=== PATIENT | female | born 1980 | race Caucasian/White ===

== ENCOUNTER 2016-10-02 22:03 | Inpatient (IN) | payer MEDICAID ==
[~2016-10-02] VITALS: Ht 154.9 cm; Wt 77.6 kg
[2016-10-02 22:08] VITALS: Ht 154.9 cm; Wt 77.6 kg
[2016-10-02 22:09] VITALS: BP 146/82; RESP 18
[2016-10-02] MEDS ORDERED: PREN1TAB62 PO (22:16)
[2016-10-02 23:11] LABS: ADD SCAN DIFF NO
[2016-10-02 23:18] LABS: ALBUMIN 3.5 g/dl (3.3-4.9)
[2016-10-02 23:19] LABS: POTASSIUM 3.8 mmol/L (3.5-5.1)
[2016-10-02 23:21] LABS: ALBUMIN/GLOBULIN RATIO 1.2; CREATININE 0.45 mg/dl (0.44-1.00); INR 1.01; PARTIAL THROMBOPLASTIN TIME 27.1 Sec (25.0-35.0); PROTIME 13.3 Sec (12.2-14.2); TOTAL PROTEIN 6.4 g/dl (6.1-8.1)
[2016-10-02 23:22] LABS: ADD UMIC YES; CALCIUM 10.1 mg/dl (8.4-10.2); URIC ACID 3.9 mg/dl (3.1-7.9); URINE BILIRUBIN (Dip) NEGATIVE (NEGATIVE); URINE BLOOD (Dip) NEGATIVE (NEGATIVE); URINE COLOR LT. YELLOW (YELLOW); URINE GLUCOSE (Dip) NEGATIVE (NEGATIVE); URINE KETONES (Dip) NEGATIVE (NEGATIVE); URINE LEUKOCYTE ESTERASE (Dip) TRACE (NEGATIVE); URINE NITRITE (Dip) NEGATIVE (NEGATIVE); URINE TOTAL PROTEIN (Dip) NEGATIVE (NEGATIVE); URINE UROBILINOGEN (Dip) 0.2 E.U./dL (0.1-1.0)
[2016-10-02 23:26] LABS: BASOPHILS % 0.3 % (0.0-2.0); EOSINOPHILS # 0.1 10^3/ul (0.0-0.5); EOSINOPHILS % 0.6 % (0.0-7.0); HEMOGLOBIN 12.3 g/dl (12.0-16.0); LYMPHOCYTES # 2.3 10^3/ul (0.8-2.9); LYMPHOCYTES % 19.8 % (15.0-51.0); MEAN CORPUSCULAR HEMOGLOBIN 31.7 pg (29.0-33.0); MEAN CORPUSCULAR HGB CONC 36.2 g/dl (32.0-37.0); MEAN CORPUSCULAR VOLUME 87.6 fl (82.0-101.0); MEAN PLATELET VOLUME 10.3 fl (7.4-10.4); MONOCYTE # 0.8 10^3/ul (0.3-0.9); MONOCYTES % 7.1 % (0.0-11.0); NEUTROPHIL # 8.2 10^3/ul (1.6-7.5); NEUTROPHILS % 71.4 % (39.0-77.0); PLATELET COUNT 272 10^3/UL (140-415); RED BLOOD COUNT 3.88 10^6/ul (4.20-5.40); RED CELL DISTRIBUTION WIDTH 13.2 % (11.5-14.5); WHITE BLOOD COUNT 11.5 10^3/ul (4.8-10.8)
--- NOTE | 2016-10-02 23:29 | RADRPT ---
PROCEDURE: OB ultrasound for biophysical profile CLINICAL INDICATION: Biophysical profile. . TECHNIQUE: Multiple sonographic images of the pelvis were obtained. Transabdominal view of the gr avid uterus are available for review. The images were reviewed on a PACS workstation. COMPARISON: None FINDINGS: Single intrauterine gestation. Presentation: Cephalic. Partially visualized placenta: Anterior. breathing movement = 2/2 tone = 2/2 motion = 2/2 SUGEY = 2/2 SUGEY = 8.7 cm heart rate: 156 beats per minute IMPRESSION: Single intrauterine gestation. Biophysical profile 03/09 RPTAT: AADD .Cy Laureano MD, MD Date Time Electronically viewed and signed by .Cy Laureano MD, on 10/02/2016 23:29 .B/
[2016-10-02 23:43] LABS: BACTERIA,URINE OCCASIONAL; SQUAMOUS EPITHELIAL CELL,UR OCCASIONAL; URINE RBCS NONE SEEN /HPF (0)
[2016-10-03] MEDS: LACTATED RINGER'S 1,000 ML IV SCH ×4 (01:12→19:15)
--- NOTE | 2016-10-03 01:22 | HP ---
Date/Time of Note Date/Time of Note DATE: 10/03/16 TIME: 01:05 OB - History Hx of Present Free Text/Dictation Pt is a 36yo w/hx of C/S x4 now at 37+2 who presents with contractions since noon. Pt reports normal FM, denies LOF, VB, headache, RUQ pain, visual changes. Reports normal FM. Denies hx of elevated BPs in clinic or with other pregnancies. PROCEDURE: OB ultrasound for biophysical profile CLINICAL INDICATION: Biophysical profile. . TECHNIQUE: Multiple sonographic images of the pelvis were obtained. Transabdominal view of the gravid uterus are available for review. The images were reviewed on a PACS workstation. COMPARISON: None FINDINGS: Single intrauterine gestation. Presentation: Cephalic. Partially visualized placenta: Anterior. breathing movement = 2/2 tone = 2/2 motion = 2/2 SUGEY = 2/2 SUGEY = 8.7 cm heart rate: 156 beats per minute IMPRESSION: Single intrauterine gestation. Biophysical profile 03/09 Estimated Due Date: Oct 21, 2016 : 5 Para: 4 Care: Good Care OB Admission Exam Vital Signs Vital Signs Vital Signs Date Time Temp Pulse Resp B/P Pulse Ox O2 Delivery O2 Flow Rate FiO2 10/02/16 22:09 98.3 18 146/82 Room Air BPs highest 154/95, at times normotensive Physical Exam HEENT: WNL Heart: Rhythm Normal Lungs: Clear Abdomen: WNL (soft, gravid, nontender) Extremities: Normal Reflexes: Normal Cervical Dilatation: None Effacement: 0% Station: -3 Membranes: Intact Heart Rate: 140's Accelerations: Accelerations Present Decelerations: Late Decelarations (x2 both subtle approx 2min) Varibility: Moderate Contractions on Admission: >10 Minutes Apart (approx 1 UC q30 min) Last 72 hours Lab Results CBC & BMP 10/02/16 22:50 Liver Function Test 10/02/16 22:50 Alanine Aminotransferase (ALT/SGPT) 32 Albumin 3.5 Alkaline Phosphatase 126 H Aspartate Amino Transf (AST/SGOT) 25 Direct Bilirubin 0.00 Total Protein 6.4 OB Assessment/Plan Other Assessment: Newly elevated BPs decel Hx of C/S x4 Other plan: 1)Elevated BPs: Pt has not yet met the time criteria to rule in for gestational hypertension and PreE labs drawn and returned wnl. However, given newly elevated BPs at term will admit to antepartum service for BP monitoring and 24hr urine collection 2)FWB: NST reactive. BPP 03/09. Subtle decels noted during triage NST however. Thus will continue external monitoring during admission. Overall tracing is reassuring. In the setting of multiple prior C/S will defer contraction stress test. 3)Contractions: Infrequent and not suggestive of labor. Will start IV hydration and consider Terbutaline for pt comfort. There is no indication at this time for emergent delivery. If maternal or status changes, will reevaluate need for delivery. EDDIE REILLY MD Oct 03, 2016 01:22
[2016-10-03] MEDS ORDERED: LACTATED RINGER'S 1,000 ML IV SCH (01:34)
--- NOTE | 2016-10-03 02:02 | TRIAGE ---
OB Triage Datetime Report Generated by CPN: 10/03/2016 02:02 Datetime: 10/03/2016 01:28 Stage of : Antepartum Assessment Type: Ongoing Assessment Maternal Assessment Level of Consciousness: Fully Conscious DTR's/Clonus: DTRs 2+; No Clonus Headache: Denies Blurred Vision: No Respiratory Effort: Unlabored; Regular Rhythm; Equal Expansion Breath Sounds, Left: Clear and Equal Breath Sounds, Right: Clear and Equal Nausea/Vomiting: Denies RUQ Epigastric Pain: Denies Lower Extremities Edema: None Degree: None Upper Extremities Edema: None Degree: None Facial Edema: None Temperature Route: Oral Fall Risk Assessment History of Falling: (0) No Secondary Diagnosis: (0) No Ambulatory Aid: (0) Bedrest/Nurse Assist IV Therapy: (0) No Gait: (0) Normal/Bedrest/Immobile Mental Status: (0) Oriented to Own Ability Fall Score: 0 Fall Risk Score Definition: No Risk: No action required Pain Presence: None/Denies Datetime: 10/03/2016 01:05 Stage of : OB Triage Datetime: 10/03/2016 00:58 Labor Evaluation Frequency: IRREGULAR Monitor Mode: External Duration (sec)2399: 40-110 Quality: Mild Pattern: Normal: <= 5 Contractions in 10 Minutes Resting Tone [place]: Relaxed Heart Rate FHR Baseline Rate: 145 Monitor Mode: External US FHR Baseline Changes: No Baseline Change Variability: Moderate 6-25 bpm Accelerations: 15X15 Decelerations: Variable Category: Category II Datetime: 10/03/2016 00:12 Stage of : OB Triage Datetime: 10/03/2016 00:00 Decelerations: Late Category: Category II Comments: PER DR REILLY Datetime: 10/02/2016 23:52 Labor Evaluation Frequency: 0 Monitor Mode: External Heart Rate FHR Baseline Rate: 145 Monitor Mode: External US FHR Baseline Changes: No Baseline Change Variability: Moderate 6-25 bpm Accelerations: 15X15 Decelerations: None Category: Category I Datetime: 10/02/2016 23:00 Stage of : OB Triage Labor Evaluation Frequency: 1/30 MIN Monitor Mode: External Duration (sec)2399: 110 Quality: Mild Pattern: Normal: <= 5 Contractions in 10 Minutes Resting Tone [place]: Relaxed Heart Rate FHR Baseline Rate: 145 Monitor Mode: External US FHR Baseline Changes: No Baseline Change Variability: Moderate 6-25 bpm Accelerations: 15X15 Decelerations: Variable Category: Category II Datetime: 10/02/2016 22:05 Stage of : OB Triage Arrived By: Wheelchair Arrived From: Home Chief Complaint: CONTRACTIONS SINCE 1200 Movement: Present Time Contractions Began: 10/02/2016 12:00 Rupture of Membranes: Denies Vaginal Discharge: Denies Recent Sexual Intercouse: Denies Abdominal Trauma: Not Applicable Time Provider Notified: 10/02/2016 22:35 (Annotations: Data stored by CPN on behalf of user) Provider Notified: DR REILLY Initial Plan: CALL MD [facility] Maternal Assessment Level of Consciousness: Fully Conscious DTR's/Clonus: DTRs 2+; No Clonus Headache: Denies Blurred Vision: No Respiratory Effort: Unlabored; Regular Rhythm; Equal Expansion Breath Sounds, Left: Clear and Equal Breath Sounds, Right: Clear and Equal Nausea/Vomiting: Denies RUQ Epigastric Pain: Denies Lower Extremities Edema: Bilateral Lower Extremities Degree: 1+ Upper Extremities Edema: None Degree: None Facial Edema: None Temperature Route: Oral Fall Risk Assessment History of Falling: (0) No Secondary Diagnosis: (0) No Ambulatory Aid: (0) Bedrest/Nurse Assist IV Therapy: (0) No Gait: (0) Normal/Bedrest/Immobile Mental Status: (0) Oriented to Own Ability Fall Score: 0 Fall Risk Score Definition: No Risk: No action required Monitor Mode: External Monitor Mode: External US Pain Assessment Pain Scale: 5 Pain Presence: Intermittent Pain Type: Contraction Pain Location: Abdomen
[2016-10-03] MEDS: DOCUSATE SODIUM 100 MG CAP PO SCH (08:46)
[2016-10-03] MEDS: MULTIVIT/MIN/FOLATE/IRON/PREN TAB PO SCH (08:46)
--- NOTE | 2016-10-03 09:25 | CONS ---
Date/Time of Note Date/Time of Note DATE: 10/03/16 TIME: 09:08 Consultation Date/Type/Reason Admit Date/Time Oct 03, 2016 at 01:06 Initial Consult Date October 03, 2016 Hospital consult This patient is a 36 years old 5 para 4 who delivered her past four children by section She came to the hospital last night with multiple complaints including lower abdominal and headache and contractions however her evaluation did not show any evidence of labor she was admitted in the hospital in high risk area for further evaluation and rule out PIH On physical examination heart tone is normal very rare contraction Her ear nose throat is normal no edema no varicosities of the neck or lower extremity. Abdomen is soft. heart rate around 135 145 with with good variability no deceleration Patient is in vertex presentation Lower extremities no edema knee-jerk reflexes 1+ On pelvic examination the cervix is closed fairly long, no evidence of rupture of membrane On ultrasound study: Biophysical profile is 8/8 SUGEY is 8.7 her lab works so for within normal limits and 24-hour urine collection is in process The most important finding is her blood pressure of 140/80 Her 24 hours urine collection is in process the result we be ready 1:00 midnight Today she has some complaint of her abdomen, basically she is interested to terminate this and have a section Reason for Consultation Intrauterine of 37 weeks and 2 days to rule out PIH or early labor Detailed Summary Eyes: No discharge, No no complaints, No other, No pain, No redness, No visual change ENT: No bleeding, No congestion, No discharge, No dysphagia, No no complaints, No other, No pain, No sore throat Respiratory: No cough, No no complaints, No other, No pain, No pleuritic pain, No shortness of breath, No sputum, No wheezing Cardiovascular: No chest pain, No edema, No lightheadedness, No no complaints, No orthopenea, No other, No palpitations, No paroxysmal nocturnal dyspnea Gastrointestinal: other (Slight abdominal pain), No blood, No constipation, No decreased appetite, No diarrhea, No flatus, No nausea, No no complaints, No pain, No passing stool, No vomiting Genitourinary: other (Cervix is closed long no evidence of ruptured membrane), No bleeding, No discharge, No dysuria, No flank pain, No hematuria, No no complaints Musculoskeletal: No back pain, No bone/joint pain, No neck pain, No no complaints, No other, No restricted range of motion, No swelling Skin: other (Knee-jerk reflex is negative), No bruising, No erythema, No laceration, No no complaints, No pruritis, No rash, No skin lesions Neurologic: No confusion, No dizziness, No focal-weakness, No headache, No no complaints, No other, No seizure, No syncope Endocrine: No dry skin, No no complaints, No other, No polydypsia, No polyuria , No temp intolerance Lymphatic: No adenopathy, No lymphadema, No no complaints, No other, No tender nodes Exam/Review of Systems Vital Signs Vitals Vital Signs Date Time Temp Pulse Resp B/P Pulse Ox O2 Delivery O2 Flow Rate FiO2 10/02/16 22:09 98.3 18 146/82 Room Air Intake and Output 10/02/16 10/02/16 10/03/16 15:00 23:00 07:00 Intake Total 1235 ml Output Total 1400 ml Balance -165 ml Results Result Diagram: 10/02/16 2250 10/02/16 2250 Results 24 hrs Laboratory Tests Test 10/02/16 22:50 Activated Partial Thromboplast Time 27.1 Alanine Aminotransferase (ALT/SGPT) 32 Albumin 3.5 Albumin/Globulin Ratio 1.20 Alkaline Phosphatase 126 H Anion Gap 17 H Aspartate Amino Transf (AST/SGOT) 25 Basophils # 0.0 Basophils % 0.3 Blood Urea Nitrogen 8 Calcium Level 10.1 Carbon Dioxide Level 22 Chloride Level 102 Creatinine 0.45 Direct Bilirubin 0.00 Eosinophils # 0.1 Eosinophils % 0.6 Fibrinogen 427.0 Globulin 2.90 Glucose Level 103 Hematocrit 34.0 L Hemoglobin 12.3 Hepatitis B Surface Antigen NEGATIVE INR International Normalized Ratio 1.01 Indirect Bilirubin 0.0 Lymphocytes # 2.3 Lymphocytes % 19.8 Mean Corpuscular Hemoglobin 31.7 Mean Corpuscular Hemoglobin Concent 36.2 Mean Corpuscular Volume 87.6 Mean Platelet Volume 10.3 Monocytes # 0.8 Monocytes % 7.1 Neutrophils # 8.2 H Neutrophils % 71.4 Nucleated Red Blood Cells # 0.0 Nucleated Red Blood Cells % 0.0 Platelet Count 272 Potassium Level 3.8 Prothrombin Time 13.3 Prothrombin Time Ratio 1.0 Red Blood Count 3.88 L Red Cell Distribution Width 13.2 Sodium Level 137 Total Bilirubin 0.0 L Total Protein 6.4 Uric Acid 3.9 Urine Amorphous Urates OCCASIONAL Urine Bacteria OCCASIONAL Urine Bilirubin NEGATIVE Urine Clarity CLEAR Urine Color LT. YELLOW Urine Glucose NEGATIVE Urine Hemoglobin NEGATIVE Urine Ketones NEGATIVE Urine Leukocyte Esterase TRACE H Urine Microscopic RBC NONE SEEN Urine Microscopic WBC 0-2 Urine Nitrite NEGATIVE Urine Specific [place] 1.010 Urine Squamous Epithelial Cells OCCASIONAL Urine Total Protein NEGATIVE Urine Urobilinogen 0.2 E.U./dL Urine pH 6.5 White Blood Count 11.5 H Medications Medications Current Medications Prenat Multivit/ Film Process Operator/Iron/Folic Ac ( S) 1 tab DAILY PO Last administered on 10/03/16 08:46; Admin Dose 1 TAB; Start 10/03/16 at 09:00 Docusate Sodium 100 mg 100 mg DAILY PO Last administered on 10/03/16 08:46; Admin Dose 100 MG; Start 10/03/16 at 09:00 Lactated Ringer's (Lr) 1,000 ml @ 125 mls/hr Q8H IV Last administered on 03:22; Admin Dose 125 MLS/HR; Start 10/03/16 at 03:10 AFUA APARICIO MD Oct 03, 2016 09:21
[2016-10-04 02:20] LABS: COLLECTION PERIOD 24 hrs
[2016-10-04 02:33] LABS: SCRET 0.41 mg/dl (0.44-1.00)
[2016-10-04] MEDS: LACTATED RINGER'S 1,000 ML IV SCH ×3 (03:13→20:54)
[2016-10-04 04:28] LABS: URINE TOTAL PROTEIN < 5.0 mg/dl
[2016-10-04] MEDS: MULTIVIT/MIN/FOLATE/IRON/PREN TAB PO SCH (08:59)
[2016-10-04] MEDS: DOCUSATE SODIUM 100 MG CAP PO SCH (08:59)
[2016-10-04 11:45] LABS: ALBUMIN 3.1 g/dl (3.3-4.9)
[2016-10-04 11:46] LABS: POTASSIUM 3.4 mmol/L (3.5-5.1)
[2016-10-04 11:48] LABS: BILIRUBIN,INDIRECT 0.1 mg/dl (0-1.1); BILIRUBIN,TOTAL 0.1 mg/dl (0.2-1.3); CREATININE 0.41 mg/dl (0.44-1.00)
[2016-10-04 11:49] LABS: ALBUMIN/GLOBULIN RATIO 1.1; CALCIUM 9.1 mg/dl (8.4-10.2); TOTAL PROTEIN 5.9 g/dl (6.1-8.1)
[2016-10-04] MEDS ORDERED: MISOPROSTOL 200 MCG TAB PR PRN (18:00)
[2016-10-04] MEDS ORDERED: CARBOPROST 250 MCG INJ IM PRN (18:00)
[2016-10-04] MEDS ORDERED: OXYTOCIN 30 UNITS/LR 500 ML IV PRN (18:00)
[2016-10-04] MEDS ORDERED: CEFAZOLIN 2 GM/50 ML (PMX) 50 ML IV SCH (18:00)
[2016-10-04] MEDS ORDERED: METHYLERGONOVINE 0.2 MG INJ IM PRN (18:00)
[2016-10-04 18:54] LABS: ADD SCAN DIFF NO
[2016-10-04 18:56] LABS: BASOPHILS % 0.3 % (0.0-2.0); EOSINOPHILS # 0.1 10^3/ul (0.0-0.5); EOSINOPHILS % 1.3 % (0.0-7.0); HEMATOCRIT 34.4 % (37.0-47.0); HEMOGLOBIN 12.2 g/dl (12.0-16.0); LYMPHOCYTES % 20.7 % (15.0-51.0); MEAN CORPUSCULAR HEMOGLOBIN 31.4 pg (29.0-33.0); MEAN CORPUSCULAR HGB CONC 35.5 g/dl (32.0-37.0); MEAN CORPUSCULAR VOLUME 88.4 fl (82.0-101.0); MEAN PLATELET VOLUME 10.2 fl (7.4-10.4); MONOCYTE # 0.7 10^3/ul (0.3-0.9); MONOCYTES % 7.5 % (0.0-11.0); NEUTROPHIL # 6.6 10^3/ul (1.6-7.5); NEUTROPHILS % 69.6 % (39.0-77.0); PLATELET COUNT 255 10^3/UL (140-415); RED BLOOD COUNT 3.89 10^6/ul (4.20-5.40); RED CELL DISTRIBUTION WIDTH 13.3 % (11.5-14.5); WHITE BLOOD COUNT 9.4 10^3/ul (4.8-10.8)
[2016-10-04 19:09] LABS: INR 0.97; PROTIME 12.9 Sec (12.2-14.2)
[2016-10-04 19:10] LABS: PARTIAL THROMBOPLASTIN TIME 26.7 Sec (25.0-35.0)
[2016-10-05] MEDS ORDERED: morphine 4 MG/ML VIAL IV PRN
[2016-10-05] MEDS: LACTATED RINGER'S 1,000 ML IV SCH ×6 (05:31→18:46)
[2016-10-05] MEDS ORDERED: CITRIC ACID/NA CITRATE 30 ML CUP ONE (05:41)
[2016-10-05] MEDS ORDERED: morphine SULFATE/PF (10 MG/10 ML) INJ ONE (06:10)
[2016-10-05] MEDS ORDERED: FENTAnyl 50 MCG/ML VIAL ONE (06:10)
[2016-10-05] MEDS ORDERED: ZOLPIDEM 5 MG TAB PO PRN (06:30)
[2016-10-05] MEDS ORDERED: HYDROmorphONE 1 MG/ML SYG IV PRN ×4 (06:30→07:30)
[2016-10-05] MEDS ORDERED: CITRIC ACID/NA CITRATE 30 ML CUP PO ONE (06:30)
[2016-10-05] MEDS ORDERED: KETOROLAC 30 MG INJ IV PRN ×2 (06:30→07:30)
[2016-10-05] MEDS ORDERED: NALOXONE (0.4 MG/ML) INJ IV PRN ×2 (06:30→07:30)
[2016-10-05] MEDS ORDERED: ONDANSETRON 4 MG INJ IV PRN ×3 (06:30→07:30)
[2016-10-05] MEDS ORDERED: DIPHENHYDRAMINE 50 MG INJ IV PRN ×3 (06:30→07:30)
--- NOTE | 2016-10-05 06:43 | HP ---
Date/Time of Note Date/Time of Note DATE: 10/05/16 TIME: 06:41 OB - History Hx of Present Free Text/Dictation 36 YO with h/o c/s x 4 with IUP 37+ wks who presented to L&D for UCs and elevated BPs who desires BTL Care: Good Care Ultrasounds: Normal mid trimester US Obstetrical Complications: None Medical Complications: None Past Family/Social History * Past Medical, Surgical, Family and Obstetric Histories reviewed from chart. OB Admission Exam Vital Signs Vital Signs Vital Signs Date Time Temp Pulse Resp B/P Pulse Ox O2 Delivery O2 Flow Rate FiO2 10/02/16 22:09 98.3 18 146/82 Room Air Physical Exam HEENT: WNL Heart: Rhythm Normal Lungs: Clear, Equal Abdomen: WNL Extremities: Normal Reflexes: Normal Last 72 hours Lab Results CBC & BMP 10/02/16 22:50 10/04/16 11:20 10/04/16 18:40 Liver Function Test 10/02/16 22:50 10/04/16 11:20 Alanine Aminotransferase (ALT/SGPT) 32 25 Albumin 3.5 3.1 L Alkaline Phosphatase 126 H 131 H Aspartate Amino Transf (AST/SGOT) 25 29 Direct Bilirubin 0.00 0.00 Total Protein 6.4 5.9 L OB Assessment/Plan Other Assessment: 36 YO with h/o c/s x 4 with IUP 37+ wks who presented to L&D for UCs and elevated BPs who desires BTL Other plan: repeat c/s and BTL ROAY MARSHALL MD Oct 05, 2016 06:43
[2016-10-05] MEDS ORDERED: PHENYLephrine (100 MCG/ML) 5ML SYG ONE (06:46)
--- NOTE | 2016-10-05 06:54 | PREOPHP ---
DATE OF ADMISSION: 10/03/2016 HISTORY OF PRESENT ILLNESS: The patient is a 36-year-old 5, para 4, at 37 weeks w ith history of previous delivery x4 in the past, was admitted by laborist because they are slot machine floor person for me for high blood pressures and irregular contractions. Because she has elevated blood pressures and irregular contractions, I recommended to proceed with repeat delivery at this time. She also desires to have permanent sterilization and tubal ligation. I discussed with patie nt the risks, benefits, indications, alternatives of procedure including, but not limited to risk of infection, bleeding, damage to other organs, bowel, bladder, hernia formation, scar formation, poss ibility of blood transfusions, the fact that tubal ligation is permanent and irreversible, but it ma y not be 100% effective. They were all discussed with patient. She was allowed to ask questions, a ll her questions were answered, and informed consent has been obtained. PAST MEDICAL HISTORY: None. PAST SURGICAL HISTORY: delivery x4. ALLERGIES: NO KNOWN DRUG ALLERGIES. MEDICATIONS: 1. vitamins. 2. Iron. REVIEW OF SYSTEMS: Significant as above. PHYSICAL EXAMINATION: VITAL SIGNS: Stable. Afebrile. GENERAL: In no acute distress. HEENT: No thyromegaly. HEART: Regular rate and rhythm. LUNGS: Clear to auscultation bilaterally. ABDOMEN: Soft, gravid, nontender. EXTREMITIES: No edema. ASSESSMENT: 1. Term . 2. History of previous delivery, irregular contractions, elevated blood pressures. PLAN: Proceed with repeat delivery and tubal ligation. Informed consent has been obtained . Dictated By: ROYA FLORES/ELMA Conf#: [id number] DID#: [id number]
[2016-10-05] MEDS ORDERED: LANOLIN 7 GM TUBE TOP PRN (07:00)
[2016-10-05] MEDS ORDERED: NA PHOSPHATE/BIPHOS 133 ML ENEMA PR PRN (07:00)
[2016-10-05] MEDS ORDERED: OXYCODONE/ACETAMINOPHEN (5/325) TAB PO PRN (07:00)
[2016-10-05] MEDS ORDERED: MISOPROSTOL 200 MCG TAB PR PRN (07:00)
[2016-10-05] MEDS ORDERED: KETOROLAC 30 MG INJ ONE (07:11)
[2016-10-05] MEDS ORDERED: METOCLOPRAMIDE 10 MG INJ ONE (07:11)
[2016-10-05] MEDS ORDERED: OXYTOCIN 10 UNIT INJ ONE (07:11)
[2016-10-05] MEDS ORDERED: ONDANSETRON 4 MG INJ ONE (07:11)
[2016-10-05] MEDS ORDERED: DEXAMETHASONE 4 MG/ML 1 ML INJ ONE (07:11)
[2016-10-05] MEDS ORDERED: HYDROmorphONE (0.2 MG/ML) 10ML SYG IV PRN ×3 (07:30)
[2016-10-05] MEDS ORDERED: MEPERIDINE 25 MG INJ IV PRN (07:30)
[2016-10-05] MEDS ORDERED: morphine (1 MG/ML) 10ML SYRINGE IV PRN ×3 (07:30)
[2016-10-05] MEDS ORDERED: morphine 2 MG INJ IV PRN ×2 (07:30)
[2016-10-05] MEDS ORDERED: METOCLOPRAMIDE 10 MG INJ IV PRN (07:30)
[2016-10-05] MEDS: OXYTOCIN 30 UNITS/LR 500 ML IV SCH ×3 (08:40→14:21)
--- NOTE | 2016-10-05 09:00 | OPR ---
DATE OF OPERATION: PREOPERATIVE DIAGNOSES: 1. at 37 weeks and 5 days. 2. History of previous delivery x4. 3. Desires permanent sterilization. 4. Elevated blood pressures. 5. Uterine contractions. POSTOPERATIVE DIAGNOSES: 1. at 37 weeks and 5 days. 2. History of previous delivery x4. 3. Desires permanent sterilization. 4. Elevated blood pressures. 5. Uterine contractions. 6. Pelvic adhesion. 7. Left paratubal cyst. PROCEDURE: Repeat delivery and left paratubal cystectomy. SURGEON: Roya Sweeney MD CANAL SUPERINTENDENT: ____ COMPLICATIONS: None. CONSENT: The risks, benefits, indications, and alternatives of procedure including, but not limited to, risk of infection, bleeding, damage to other organs, bowel, bladder, hernia formation, scar for mation, possibility of transfusions were all discussed with the patient. Possibility of failure of tubal ligation discussed with the patient. She was allowed to ask questions, all her questions answ ered, informed consent was obtained. PROCEDURE: She was taken to the operating room and spinal anesthesia was given. She was prepped an d draped in the usual sterile fashion. A knife was used to make a Pfannenstiel skin incision. Inci kristy was taken down in layers. The fascia was cut, undermined, from the underlying muscle s using sharp and blunt dissection. All bleeders were cauterized. Peritoneum was entered bluntly. There was no rectus muscle identified which made entry challenging. There were adhesions from omen arcenio to anterior abdominal wall. There were some adhesions from the rectus fascia to the lower uteri ne segment and the bladder was high. We made incision; however, we usually make a low transverse in cision was due to these adhesions and due to the fact that she does not desire future fertility. Tr ansverse incision was developed and a viable was delivered without difficulty. The cord was clamped and cut, handed to awaiting team. Amniotic fluid was clear and adequate in volume. The keiko centa delivered easily and uterus was exteriorized and we noticed that the uterus contained numerous small fibroids, the largest fibroid was about 3 cm, and she probably had a dozen fibroids throughou t the uterus. Inside the uterus was cleaned using a dry lap. All residual membranes were removed an d the uterine incision was closed using #1 Monocryl in 1 layer. There was no further bleeding and t he bladder was high, so we decided not to imbricate the uterine incision. A 6 cm distal end of the right tube was ligated 3 times and the ligated portion was cut and sent to pathology and there was n o bleeding. We used 0 chromic for tubal ligation part of the surgery, 0 plain is not available at t his time. On the left side, there was a 2.5 cm cyst to the distal end of the tube, so as we tied th e 6 cm distal end of the tube, we were also able to include the paratubal cyst so the distal end of the tube was tied off 3 times with the cyst included, and the distal portion was cut and sent to [facility] as well as the cyst. There was some bleeding on the right corner of the incision of the uter us which was stopped using #1 Vicryl suture, and then the uterus was inserted back inside the abdomi nal cavity and the gutters were cleaned. Uterine incision and tubal ligation sites were evaluated c arefully. There was no bleeding. Rectus muscle was absent and the peritoneum could not be identifi ed. It was impossible to close the peritoneum because there was no tissue to be identified. The bl eeding on the anterior abdominal wall was stopped using cautery, and then the fascia was closed usin g #1 Vicryl. Subcutaneous tissue was cleaned, irrigated, all bleeders cauterized and closed using 2 -0 plain and the skin closed using 4-0 Monocryl. All counts were correct. Dictated By: ROYA FLORES/ELMA Conf#: [id number] DID#: [id number]
[2016-10-05 12:00] VITALS: BP 138/81; PULSE 105; RESP 18
[2016-10-05] MEDS: SENNA/DOCUSATE NA (8.6MG/50MG) TAB PO SCH ×2 (12:00→21:56)
[2016-10-05] MEDS: IBUPROFEN 600 MG TAB PO SCH ×2 (12:00→17:38)
[2016-10-05] MEDS: DOCUSATE SODIUM 100 MG CAP PO SCH (12:00)
[2016-10-05] MEDS ORDERED: IBUPROFEN 600 MG TAB PO SCH (12:00)
[2016-10-05] MEDS: MULTIVIT/MIN/FOLATE/IRON/PREN TAB PO SCH (12:00)
[2016-10-05 12:30] VITALS: BP 127/69; PULSE 99; RESP 18
[2016-10-05 13:00] VITALS: BP 125/71; PULSE 93; RESP 19
[2016-10-05 14:00] VITALS: BP 121/67; PULSE 95; RESP 18
[2016-10-05 16:00] VITALS: BP 130/63; PULSE 92; RESP 19
[2016-10-05 20:10] VITALS: BP 118/58; PULSE 94; RESP 18
[2016-10-06] MEDS: LACTATED RINGER'S 1,000 ML IV SCH ×2 (03:10→06:38)
[2016-10-06 05:00] VITALS: BP 106/52; PULSE 101; RESP 18
[2016-10-06] MEDS: IBUPROFEN 600 MG TAB PO SCH ×4 (06:00→18:40)
--- NOTE | 2016-10-06 06:41 | OPPN ---
Date/Time of Note Date/Time of Note DATE: 10/06/16 TIME: 06:41 Post-Anesthesia Notes Post-Anesthesia Note Activity: WNL Respiratory function: WNL Cardiovascular function: WNL Mental status: Baseline Pain reasonably controlled: Yes Hydration appropriate: Yes Nausea/Vomiting absent: No Pt recovered from regional: Yes JABIER CLEMENT MD Oct 06, 2016 06:41
[2016-10-06 08:21] LABS: ADD SCAN DIFF NO
[2016-10-06 08:30] VITALS: BP 122/74; PULSE 70; RESP 18
[2016-10-06 08:32] LABS: BASOPHILS % 0.3 % (0.0-2.0); EOSINOPHILS # 0.1 10^3/ul (0.0-0.5); EOSINOPHILS % 0.5 % (0.0-7.0); HEMATOCRIT 21.2 % (37.0-47.0); HEMOGLOBIN 7.4 g/dl (12.0-16.0); LYMPHOCYTES # 1.8 10^3/ul (0.8-2.9); LYMPHOCYTES % 15.7 % (15.0-51.0); MEAN CORPUSCULAR HEMOGLOBIN 31.6 pg (29.0-33.0); MEAN CORPUSCULAR HGB CONC 34.9 g/dl (32.0-37.0); MEAN CORPUSCULAR VOLUME 90.6 fl (82.0-101.0); MEAN PLATELET VOLUME 10.2 fl (7.4-10.4); MONOCYTE # 0.7 10^3/ul (0.3-0.9); MONOCYTES % 6.2 % (0.0-11.0); NEUTROPHIL # 8.9 10^3/ul (1.6-7.5); NEUTROPHILS % 76.7 % (39.0-77.0); PLATELET COUNT 218 10^3/UL (140-415); RED BLOOD COUNT 2.34 10^6/ul (4.20-5.40); RED CELL DISTRIBUTION WIDTH 13.6 % (11.5-14.5); WHITE BLOOD COUNT 11.7 10^3/ul (4.8-10.8)
--- NOTE | 2016-10-06 09:30 | PN ---
Date/Time of Note Date/Time of Note DATE: 10/06/16 TIME: 09:27 OB Subjective Subjective Subjective October 06, 2016 Post day 1 Post day 1 Patient is doing well, Ambulatory She is afebrile Abdomen is soft , Fundus is firm Moderate amount of lochia Breasts are soft, Nipples are intact No calf tenderness. Incision healing Breast feeding the new born. Laboratory Tests Test 10/06/16 07:36 Basophils # 0.010^3/ul Basophils % 0.3% Eosinophils # 0.110^3/ul Eosinophils % 0.5% Hematocrit 21.2% Hemoglobin 7.4g/dl Lymphocytes # 1.810^3/ul Lymphocytes % 15.7% Mean Corpuscular Hemoglobin 31.6pg Mean Corpuscular Hemoglobin Concent 34.9g/dl Mean Corpuscular Volume 90.6fl Mean Platelet Volume 10.2fl Monocytes # 0.710^3/ul Monocytes % 6.2% Neutrophils # 8.910^3/ul Neutrophils % 76.7% Nucleated Red Blood Cells # 0.010^3/ul Nucleated Red Blood Cells % 0.0/100WBC Platelet Count 97868^3/UL Red Blood Count 2.3410^6/ul Red Cell Distribution Width 13.6% White Blood Count 11.710^3/ul Current Medications Medications (Trade) Dose Ordered Sig/David Route PRN Reason Start Time Stop Time Status Last Admin Dose Admin Lactated Ringer's (Lr) 1,000 ml @ 500 mls/hr Q2H IV 10/03/16 00:22 10/03/16 01:43 DC 10/03/16 01:12 Prenat Multivit/ Software Deployment Engineer/Iron/Folic Ac ( S) 1 tab DAILY PO 10/03/16 09:00 10/04/16 08:59 Docusate Sodium 100 mg 100 mg DAILY PO 10/03/16 09:00 10/04/16 08:59 Lactated Ringer's 1,000 ml @ 125 mls/hr Q8H IV 10/03/16 01:34 10/03/16 03:13 DC Lactated Ringer's 1,000 ml @ 125 mls/hr Q8H IV 10/03/16 03:10 10/05/16 18:46 Cefazolin Sodium/ Dextrose 50 ml @ 100 mls/hr ONCE IV 10/04/16 18:00 Oxytocin/Lactated Ringer's 500 ml @ 125 mls/hr ONCE IV 10/04/16 18:00 10/05/16 14:21 Oxytocin/Lactated Ringer's 500 ml @ 0 mls/hr ONCE PRN IV For Hemorrhage Management 10/04/16 18:00 Methylergonovine Maleate (Methergine) 0.2 mg ONCE PRN IM VAGINAL BLEEDING 10/04/16 18:00 10/05/16 09:33 Carboprost Tromethamine (Hemabate) 250 mcg ONCE PRN IM VAGINAL BLEEDING 10/04/16 18:00 Misoprostol (Cytotec) 1,000 mcg ONCE PRN [place] VAGINAL BLEEDING 10/04/16 18:00 Morphine Sulfate (morphine) 4 mg Q2H PRN IV PAIN 10/05/16 00:00 10/05/16 00:40 Citric Acid/ Sodium Citrate (Bicitra) 30 ml STK-MED ONCE .ROUTE 10/05/16 05:41 10/05/16 05:42 DC Morphine Sulfate (Duramorph) 10 mg STK-MED ONCE .ROUTE 10/05/16 06:10 10/05/16 06:11 DC Fentanyl (Sublimaze) 100 mcg STK-MED ONCE .ROUTE 10/05/16 06:10 10/05/16 06:11 DC Naloxone HCl (Narcan) 0.1 mg Q2M PRN IV FOR RESP RATE 8 OR LESS 10/05/16 06:30 10/06/16 06:29 DC Ketorolac Tromethamine (Toradol) 30 mg Q6H PRN IV PAIN 10/05/16 06:30 10/06/16 06:29 DC 10/06/16 04:21 Hydromorphone HCl (Dilaudid) 0.2 mg Q3H PRN IV PAIN LEVEL 1-5 10/05/16 06:30 10/06/16 06:29 DC Hydromorphone HCl (Dilaudid) 0.4 mg Q3H PRN IV PAIN LEVEL 6-10 10/05/16 06:30 10/06/16 06:29 DC 10/06/16 06:07 Diphenhydramine HCl (Benadryl) 25 mg Q6H PRN IV ITCHING 10/05/16 06:30 10/06/16 06:29 DC Ondansetron HCl (Zofran Inj) 4 mg Q6H PRN IV NAUSEA AND/OR VOMITING 10/05/16 06:30 10/06/16 06:29 DC Zolpidem Tartrate (Ambien) 5 mg HS MAY REPEAT X 1 PRN PO INSOMNIA 10/05/16 06:30 10/06/16 06:29 DC Miscellaneous Information (* Miscellaneous Pharmacy Order) Duramorph: .3 mg Spi... GIVEN XX 10/05/16 06:30 Citric Acid/ Sodium Citrate 30 ml 30 ml pre-procedure ONCE PO 10/05/16 06:30 10/05/16 06:32 DC Lactated Ringer's (Lr) 1,000 ml @ 125 mls/hr Q8H IV 10/05/16 06:38 Oxycodone/ Acetaminophen (Percocet (5/ 325)) 1 tab Q4H PRN PO PAIN LEVEL 4-6 10/05/16 07:00 Oxycodone/ Acetaminophen (Percocet (5/ 325)) 2 tab Q4H PRN PO PAIN LEVEL 7-10 10/05/16 07:00 Ibuprofen (Motrin) 600 mg Q6 PO 10/05/16 12:00 UNV Simethicone (Mylicon) 160 mg Q8H PRN PO DISTENSION/GAS/BLOATING 10/05/16 07:00 Senna/Docusate Sodium (Senokot-S) 1 tab BID PO 10/05/16 09:00 10/05/16 21:56 Sodium Biphosphate/ Sodium Phosphate (Fleet Enema) 133 ml DAILY PRN [place] CONSTIPATION 10/05/16 07:00 Lanolin (Dfr-K-Ghihle) 1 applic BEDSIDE MEDICATION PRN TOP BEDSIDE FOR MIRIAN TO NIPPLES 10/05/16 07:00 Diphtheria/ Tetanus/Acell Pertussis (Adacel) 0.5 ml ONCE ONCE IM* 10/08/16 09:00 10/08/16 09:01 Measles/Mumps/ Rubella Vaccine Live (Mmr Ii Vaccine) 0.5 ml ONCE ONCE SC* 10/08/16 09:00 10/08/16 09:01 Misoprostol (Cytotec) 1,000 mcg ONCE PRN [place] VAGINAL BLEEDING 10/05/16 07:00 10/05/16 09:32 Phenylephrine HCl (Dario-Synephrine Inj Syg) 500 mcg STK-MED ONCE .ROUTE 10/05/16 06:46 10/05/16 06:47 DC Ibuprofen (Motrin) 600 mg Q6 PO 10/05/16 12:00 Ondansetron HCl (Zofran Inj) 4 mg STK-MED ONCE .ROUTE 10/05/16 07:11 10/05/16 07:12 DC Metoclopramide HCl (Reglan) 10 mg STK-MED ONCE .ROUTE 10/05/16 07:11 10/05/16 07:12 DC Oxytocin (Oxytocin) 10 units STK-MED ONCE .ROUTE 10/05/16 07:11 10/05/16 07:12 DC Ketorolac Tromethamine (Toradol) 30 mg STK-MED ONCE .ROUTE 10/05/16 07:11 10/05/16 07:12 DC Dexamethasone (Decadron) 4 mg STK-MED ONCE .ROUTE 10/05/16 07:11 10/05/16 07:12 DC Naloxone HCl (Narcan) 0.1 mg Q2M PRN IV FOR RESP RATE 8 OR LESS 10/05/16 07:30 10/06/16 07:29 DC Ketorolac Tromethamine (Toradol) 30 mg Q6H PRN IV PAIN 10/05/16 07:30 10/06/16 07:29 DC Morphine Sulfate (morphine) 2 mg Q3H PRN IV PAIN LEVEL 1-5 10/05/16 07:30 10/06/16 07:29 DC Morphine Sulfate (morphine) 4 mg Q3H PRN IV PAIN LEVEL 6-10 10/05/16 07:30 10/06/16 07:29 DC Hydromorphone HCl (Dilaudid) 0.2 mg Q3H PRN IV PAIN LEVEL 1-5 10/05/16 07:30 10/06/16 07:29 DC Hydromorphone HCl (Dilaudid) 0.4 mg Q3H PRN IV PAIN LEVEL 6-10 10/05/16 07:30 10/06/16 07:29 DC Diphenhydramine HCl (Benadryl) 25 mg Q6H PRN IV ITCHING 10/05/16 07:30 10/06/16 07:29 DC Ondansetron HCl (Zofran Inj) 4 mg Q6H PRN IV NAUSEA AND/OR VOMITING 10/05/16 07:30 10/06/16 07:29 DC Miscellaneous Information (* Miscellaneous Pharmacy Order) Duramorph: 0.2 mg Spi... GIVEN XX 10/05/16 07:30 10/05/16 07:50 DC Morphine Sulfate (morphine (REC)) 2 mg PACU ORDER PRN IV MILD PAIN LEVEL 1-3 10/05/16 07:30 10/05/16 13:00 DC Morphine Sulfate (morphine (REC)) 4 mg PACU ORDER PRN IV MODERATE PAIN LEVEL 4-6 10/05/16 07:30 10/05/16 13:00 DC Morphine Sulfate (morphine (REC)) 6 mg PACU ORDER PRN IV SEVERE PAIN LEVEL 7-10 10/05/16 07:30 10/05/16 13:00 DC Hydromorphone HCl (Dilaudid (Rec)) 0.2 mg PACU ORDER PRN IV MILD PAIN LEVEL 1-3 10/05/16 07:30 10/05/16 13:00 DC Hydromorphone HCl (Dilaudid (Rec)) 0.4 mg PACU ORDER PRN IV MODERATE PAIN LEVEL 4-6 10/05/16 07:30 10/05/16 13:00 DC Hydromorphone HCl (Dilaudid (Rec)) 0.6 mg PACU ORDER PRN IV SEVERE PAIN LEVEL 7-10 10/05/16 07:30 10/05/16 13:00 DC Ondansetron HCl (Zofran Inj) 4 mg PACU ORDER PRN IV NAUSEA AND/OR VOMITING 10/05/16 07:30 10/05/16 13:00 DC Metoclopramide HCl (Reglan) 10 mg PACU ORDER PRN IV NAUSEA AND/OR VOMITING 10/05/16 07:30 10/05/16 13:00 DC Meperidine HCl (Demerol) 25 mg PACU ORDER PRN IV POST-OP RIGORS 10/05/16 07:30 10/05/16 13:00 DC Diphenhydramine HCl (Benadryl) 25 mg PACU ORDER PRN IV PRURITUS 10/05/16 07:30 10/05/16 13:00 AFUA CÁRDENAS MD Oct 06, 2016 09:30
[2016-10-06] MEDS: DOCUSATE SODIUM 100 MG CAP PO SCH (09:47)
[2016-10-06] MEDS: MULTIVIT/MIN/FOLATE/IRON/PREN TAB PO SCH (09:47)
[2016-10-06] MEDS: SENNA/DOCUSATE NA (8.6MG/50MG) TAB PO SCH ×2 (09:47→21:24)
[2016-10-06] MEDS: OXYCODONE/ACETAMINOPHEN (5/325) TAB PO PRN ×3 (10:34→21:24)
[2016-10-06 20:10] VITALS: BP 110/53; PULSE 96; RESP 18
[2016-10-07] MEDS: IBUPROFEN 600 MG TAB PO SCH ×4 (00:17→18:22)
[2016-10-07 04:00] VITALS: BP 111/65; PULSE 97; RESP 18
[2016-10-07 08:00] VITALS: BP 142/74; PULSE 106; RESP 18
[2016-10-07] MEDS: SENNA/DOCUSATE NA (8.6MG/50MG) TAB PO SCH ×2 (09:00→20:39)
[2016-10-07] MEDS: DOCUSATE SODIUM 100 MG CAP PO SCH (09:00)
[2016-10-07] MEDS: MULTIVIT/MIN/FOLATE/IRON/PREN TAB PO SCH (09:06)
[2016-10-07 16:25] VITALS: BP 153/77; PULSE 101; RESP 19
--- NOTE | 2016-10-07 17:16 | RADRPT ---
PROCEDURE: US DVT. CLINICAL INDICATION: leg swelling.. TECHNIQUE: Multiple longitudinal and transverse images of the bilateral lower extremity veins were obtained with cantu scale and color Doppler imaging. 2D grayscale measurements with compression, co efe Doppler flow, and augmentation was performed. The calf veins were interrogated as well. COMPARISON: No prior studies are available for comparison. FINDINGS: The bilateral common femoral, superficial femoral and popliteal veins are normally compressible thro ughout. Color flow demonstrates normal filling of the vessel. Normal waveforms are visualized and there is normal response to augmentation. IMPRESSION: 1. No evidence of a deep vein thrombosis involving either lower extremity. RPTAT: [facility] Physician Eleuterio Date Time Electronically viewed and signed by Physician Eleuterio on 10/07/2016 17:16 /
[2016-10-07 20:38] VITALS: BP 149/74; PULSE 97; RESP 20
[2016-10-07] MEDS: OXYCODONE/ACETAMINOPHEN (5/325) TAB PO PRN (20:38)
--- NOTE | 2016-10-07 21:11 | PN ---
Date/Time of Note Date/Time of Note DATE: 10/07/16 TIME: 21:08 OB Subjective Subjective Subjective Patient complains of swelling of the right lower extremity this morning more than the left side as well as some pain in the calf or right lower extremity. She denies any nausea. Tolerated regular diet. Passed flatus. Breast- feeding. Vaginal bleeding decreased and in the amount of menses. She is breast -feeding. She denies any other complaints. OB Objective Objective Objective Physical examination: General appearance: Alert and oriented 4 and does not appear to be in any acute distress. Lower extremity: Right lower extremity circumference at the level of ankle 25, and the left 24 There is 1+ bilateral nonpitting edema slightly more in the right than left. There is mild tenderness in the calf and the right side. No cords palpable, negative Homans sign Abdomen: soft, appropriate tenderness in the incision, no drainage from the incision, no bleeding no tenderness, no erythema Lungs: Clear to auscultation bilaterally CV: RRR Hematology - 72 Hrs Test 10/06/16 07:36 Basophils # 0.010^3/ul (0.0-0.1) Basophils % 0.3% (0.0-2.0) Eosinophils # 0.110^3/ul (0.0-0.5) Eosinophils % 0.5% (0.0-7.0) Hematocrit 21.2% (37.0-47.0) #L Hemoglobin 7.4g/dl (12.0-16.0) #L Lymphocytes # 1.810^3/ul (0.8-2.9) Lymphocytes % 15.7% (15.0-51.0) Mean Corpuscular Hemoglobin 31.6pg (29.0-33.0) Mean Corpuscular Hemoglobin Concent 34.9g/dl (32.0-37.0) Mean Corpuscular Volume 90.6fl (82.0-101.0) Mean Platelet Volume 10.2fl (7.4-10.4) Monocytes # 0.710^3/ul (0.3-0.9) Monocytes % 6.2% (0.0-11.0) Neutrophils # 8.910^3/ul (1.6-7.5) H Neutrophils % 76.7% (39.0-77.0) Nucleated Red Blood Cells # 0.010^3/ul (0.0-0.0) Nucleated Red Blood Cells % 0.0/100WBC (0.0-0.0) Platelet Count 55770^3/UL (140-415) Red Blood Count 2.3410^6/ul (4.20-5.40) #L Red Cell Distribution Width 13.6% (11.5-14.5) White Blood Count 11.710^3/ul (4.8-10.8) #H PROCEDURE: US DVT. CLINICAL INDICATION: leg swelling.. TECHNIQUE: Multiple longitudinal and transverse images of the bilateral lower extremity veins were obtained with cantu scale and color Doppler imaging. 2D grayscale measurements with compression, color Doppler flow, and augmentation was performed. The calf veins were interrogated as well. COMPARISON: No prior studies are available for comparison. FINDINGS: The bilateral common femoral, superficial femoral and popliteal veins are normally compressible throughout. Color flow demonstrates normal filling of the vessel. Normal waveforms are visualized and there is normal response to augmentation. IMPRESSION: 1. No evidence of a deep vein thrombosis involving either lower extremity. OB Assessment/Plan Other Assessment: Status post repeat section and BTL at 37 weeks due to PIH Postoperative day #2 Blood pressures in the range of 110s-150s over 70s. Majority in normal range. Asymptomatic 2. Anemia, hemoglobin 7.4, asymptomatic. Likely related to postop as well as hemoconcentration prior to delivery related to PIH. 3. Right lower extremity swelling and calf pain, Doppler with no evidence of DVT and reassuring Other plan: Routine postop care Iron twice daily with JUAN Sanderson MD Oct 07, 2016 21:11
[2016-10-07] MEDS: POLYSACCHARIDE IRON COMPLEX CAP PO SCH (22:47)
[2016-10-07] MEDS: ZOLPIDEM 5 MG TAB PO PRN ×2 (22:48→22:51)
[2016-10-08] MEDS: IBUPROFEN 600 MG TAB PO SCH ×3 (00:02→12:21)
[2016-10-08 04:35] VITALS: BP 134/77; PULSE 92; RESP 18
[2016-10-08] MEDS ORDERED: LACTATED RINGER'S 1,000 ML IV SCH (07:59)
[2016-10-08] MEDS ORDERED: MISOPROSTOL 200 MCG TAB PR PRN (08:00)
[2016-10-08] MEDS ORDERED: LANOLIN 7 GM TUBE TOP PRN (08:00)
[2016-10-08] MEDS ORDERED: NA PHOSPHATE/BIPHOS 133 ML ENEMA PR PRN (08:00)
[2016-10-08] MEDS ORDERED: OXYCODONE/ACETAMINOPHEN (5/325) TAB PO PRN ×2 (08:00)
--- NOTE | 2016-10-08 08:05 | DS ---
Date/Time of Note Date/Time of Note DATE: 10/08/16 TIME: 08:04 Obstetrical Discharge Record Final Diagnosis Final Diagnosis: Term delivered Vaginal Delivery Obstetrical Delivery: Bilateral Tubal Ligation Section Section: Repeat Complications Augmentation: No Induction: No Rupture of Membranes: No Condition on Discharge Physical Assessment Voiding: Yes Bowel Movement: Yes Breast: Soft, non-tender, Filling Fundus: Firm Abdomen and Incision: soft, appropriate tenderness and no sign of infection on incision Calf Tenderness: No Patient Condition: Good ROYA MARSHALL MD Oct 08, 2016 08:05
[2016-10-08 08:45] VITALS: BP 137/90; PULSE 100; RESP 16
[2016-10-08] MEDS ORDERED: DIPHTH/TET/ACEL PERTUSS (ADULT) 0.5 ML VIAL IM* ONE ×2 (09:00→14:00)
[2016-10-08] MEDS ORDERED: IBUPROFEN 600 MG TAB PO SCH (09:00)
[2016-10-08] MEDS: SENNA/DOCUSATE NA (8.6MG/50MG) TAB PO SCH (09:00)
[2016-10-08] MEDS: DOCUSATE SODIUM 100 MG CAP PO SCH (09:00)
[2016-10-08] MEDS ORDERED: SENNA/DOCUSATE NA (8.6MG/50MG) TAB PO SCH (09:00)
[2016-10-08] MEDS ORDERED: MEASLES,MUMPS,RUBELLA VACCINE INJ SC* ONE (09:00)
[2016-10-08] MEDS: POLYSACCHARIDE IRON COMPLEX CAP PO SCH (09:32)
[2016-10-08] MEDS: MULTIVIT/MIN/FOLATE/IRON/PREN TAB PO SCH (09:32)
[2016-10-08 12:30] VITALS: BP 136/84; PULSE 100; RESP 16
[2016-10-11] MEDS ORDERED: MEASLES,MUMPS,RUBELLA VACCINE INJ SC* ONE (09:00)
[2016-10-11] MEDS ORDERED: DIPHTH/TET/ACEL PERTUSS (ADULT) 0.5 ML VIAL IM* ONE (09:00)
== END 2016-10-08 16:45 | disposition home or self-care (01) | DRG 766 ==
LOC: OBT 22:03 → L-D 22:04 → OBT 10-03 01:04 → OBG 10-03 01:06 → L-D 10-05 07:39 → PP1 10-05 11:49
PROVIDERS: ADMIT Specialist; ATTEND Specialist
PROC: 0UL70ZZ Occlusion of Bilateral Fallopian Tubes, Open Approach (ICD-10-PCS; 2016-10-05)
PROC: 0UB60ZZ Excision of Left Fallopian Tube, Open Approach (ICD-10-PCS; 2016-10-05)
PROC: 10D00Z1 Extraction of Products of Conception, Low, Open Approach (ICD-10-PCS; principal; 2016-10-05 06:00)
DX: O34.211 Maternal care for low transverse scar from previous cesarean delivery (principal); O16.4 Unspecified maternal hypertension, complicating childbirth; O99.62 Diseases of the digestive system complicating childbirth; O99.02 Anemia complicating childbirth; K66.0 Peritoneal adhesions (postprocedural) (postinfection); M79.89 Other specified soft tissue disorders; N83.8 Other noninflammatory disorders of ovary, fallopian tube and broad ligament; Z3A.37 37 weeks gestation of pregnancy; Z37.0 Single live birth
CPT/HCPCS: 36415; 76818; 80053; 81001; 81003; 82575; 84156; 84560; 85025; 85384; 85610; 85730; 86592; 86850; 86900; 86901; 86920; 87340; 88302; 90715; 93970; 94760; 99464; G0463; J0690; J1100; J1170; J1885; J2210; J2270; J2274; J2370; J2405; J2590; J2765; J3010; J7120

== ENCOUNTER 2016-10-09 21:47 | Inpatient (IN) | payer MEDICAID ==
[~2016-10-09] VITALS: Ht 152.4 cm; Wt 71.5 kg
[~2016-10-09 21:47] MED LIST: PREN1TAB62 PO
[2016-10-09 21:53] VITALS: Ht 152.4 cm; Wt 71.5 kg
--- NOTE | 2016-10-09 22:50 | ERA ---
ER Documentation Chief Complaint Date/Time DATE: 10/09/16 TIME: 22:50 Chief Complaint headache today HPI The patient is a 36-year-old female, presenting to the ER because of severe headache 05/11, associated with vomiting, initially food then mucus. The headache is worse if she lays down, better sitting up. She was discharged from the hospital yesterday after a 4 days ago with spinal anesthesia. She denies neck pain, chest pain, dyspnea, abdominal pain, dysuria, diarrhea, constipation. She does not smoke does not drink Past medical history: None Past surgical history: , bilateral tubal ligation ROS All systems reviewed and are negative except as per history of present illness. Medications Home Meds Reported Medications Vit-Iron Fumarate-FA ( Vitamin Tablet) 1 Each Tablet, 1 TAB PO DAILY, TAB 10/02/16 Allergies Allergies: Coded Allergies: No Known Allergy (Unverified , 10/02/16) Physical Exam Vitals Vital Signs Date Time Temp Pulse Resp B/P Pulse Ox O2 Delivery O2 Flow Rate FiO2 10/09/16 21:53 99.8 96 20 166/98 98 Physical Exam Const: No acute distress. Head: Atraumatic. Eyes: Normal Conjunctiva. ENT: Normal External Ears, Nose and Mouth. Neck: Full range of motion. No meningismus. Resp: Clear to auscultation bilaterally. Cardio: Regular rate and rhythm, no murmurs. Abd: Soft, non distended, normal bowel sounds, non tender. Skin: No petechiae or rashes. Back: No midline or flank tenderness. Ext: No cyanosis, or edema. Neur: Awake and alert. No focal deficit Psych: Normal Mood and Affect. Result Diagram: 10/09/16232210/09/162322 Results 24 hrs Laboratory Tests Test 10/09/16 23:23 10/09/16 23:41 Activated Partial Thromboplast Time 29.3Sec Alanine Aminotransferase (ALT/SGPT) 81IU/L Albumin 3.8g/dl Albumin/Globulin Ratio 1.18 Alkaline Phosphatase 137IU/L Anion Gap 17 Aspartate Amino Transf (AST/SGOT) 98IU/L B-Type Natriuretic Peptide 178PG/ML Basophils # 0.110^3/ul Basophils % 0.5% Blood Urea Nitrogen 7mg/dl Calcium Level 9.1mg/dl Carbon Dioxide Level 26mmol/L Chloride Level 103mmol/L Creatinine 0.53mg/dl Direct Bilirubin 0.00mg/dl Eosinophils # 0.210^3/ul Eosinophils % 1.5% Globulin 3.20g/dl Glucose Level 95mg/dl Hematocrit 27.3% Hemoglobin 9.0g/dl INR International Normalized Ratio 0.95 Indirect Bilirubin 0.1mg/dl Lactate Dehydrogenase 731IU/L Lymphocytes # 1.710^3/ul Lymphocytes % 14.8% Mean Corpuscular Hemoglobin 30.5pg Mean Corpuscular Hemoglobin Concent 33.0g/dl Mean Corpuscular Volume 92.5fl Mean Platelet Volume 9.1fl Monocytes # 0.610^3/ul Monocytes % 5.4% Neutrophils # 9.010^3/ul Neutrophils % 76.1% Nucleated Red Blood Cells # 0.110^3/ul Nucleated Red Blood Cells % 0.5/100WBC Platelet Count 78205^3/UL Potassium Level 3.8mmol/L Prothrombin Time 12.7Sec Prothrombin Time Ratio 1.0 Red Blood Count 2.9510^6/ul Red Cell Distribution Width 13.7% Sodium Level 142mmol/L Total Bilirubin 0.1mg/dl Total Protein 7.0g/dl Troponin I 0.022ng/ml Uric Acid 3.7mg/dl White Blood Count 11.810^3/ul Bedside Urine Blood 3+ Bedside Urine Glucose (UA) Negative Bedside Urine Ketones (LAB) Trace Bedside Urine Leukocyte Esterase (L Trace Bedside Urine Nitrite (LAB) Positive Bedside Urine Protein (LAB) 2+ Bedside Urine pH (LAB) 8.5 Current Medications Medications (Trade) Dose Ordered Sig/David Route PRN Reason Start Time Stop Time Status Last Admin Dose Admin Morphine Sulfate (morphine) 2 mg ONCE ONCE IV 10/10/16 00:30 10/10/16 00:31 DC Ondansetron HCl 4 mg 4 mg ONCE STAT IV 10/10/16 00:06 10/10/16 00:07 DC Ceftriaxone Sodium (Rocephin) 50 ml @ 100 mls/hr ONCE ONCE IVPB 10/10/16 01:00 10/10/16 01:29 DC 10/10/16 00:58 Procedures/[place] [id number] Radiology Main Line: [phone] DIAGNOSTIC IMAGING REPORT Patient: MAURIZIO CALLES : 1980 Age: 36 Sex: F MR #: [id number] [facility] #: [id number] DOS: 10/09/16 2307 Ordering MD: LUCIANA MARTINS MD Location: FT Room/Bed: PROCEDURE: Noncontrast CT Head. CLINICAL INDICATION: Pain. TECHNIQUE: Noncontrast CT of the head was obtained. The administered radiation dose was CTDI vol = 45 mGy, DLP = 720 mGy-cm. COMPARISON: No pertinent prior examinations were submitted for comparison. FINDINGS: The ventricles and sulci are within normal limits. There is no acute intracranial hemorrhage or extra-axial fluid collection. There is no mass effect. No midline shift is identified. There is no loss of cantu-white differentiation to suggest acute infarction. The orbits are within normal limits. The paranasal sinuses and mastoid air cells are without fluid. No destructive osseous lesion is identified. IMPRESSION: No acute findings. RPTAT: HIKT .Renan Steiner MD, MD Date Time Electronically viewed and signed by .Renan Steiner MD, MD on 10/10/2016 01:32 .T/ CC: LUCIANA MARTINS MD MEDICAL MAKING DECISION: The patient is a 36-year-old female, presenting with headache with abnormal LFT and abnormal LDH with proteinuria, concerning for eclampsia and acute cystitis. She was treated with Rocephin 1 g IV for acute cystitis, Forgan 10- mg for headache and Zofran ODT for nausea with good response. She declined morphine IV The differential diagnoses considered include but are not limited to eclampsia, post spinal anesthesia headache, UTI, pyelonephritis, sepsis , subarachnoid hemorrhage, occult trauma, CVA, meningitis, encephalitis, hypertension, tension, migraine, cluster, narcotic withdrawal, cervical spine disease. Consultation: I discussed the patient with the on-call OB anesthesiologist Dr Jerez at 11:30 PM, who came back to the ER to evaluate the patient. He did not think the patient required a blood patch Departure Diagnosis: Primary Impression: headache Additional Impression: UTI (urinary tract infection) Condition: Stable Comments I discussed the findings with the patient. I discussed the patient with the on- call tele tech Dr Trujillo at 1:40 am who was made aware of the lab, the treatment, the patient condition. The patient is admitted to labor and delivery\ Critical Care: Time: 35 minutes excluding all billable procedures. Treatments/Evaluations: Close monitoring and treatment of unstable vital signs, cardiorespiratory, and neurologic status, while maintaining tight balance of fluid, respiratory, and cardiac interventions. LUCIANA MARTINS MD Oct 09, 2016 22:50
[2016-10-09 23:37] LABS: URINE BLOOD (Dip) POC 3+ (NEGATIVE)
[2016-10-09 23:43] LABS: ADD SCAN DIFF NO
[2016-10-09 23:55] LABS: ALBUMIN 3.8 g/dl (3.3-4.9); BASOPHIL # 0.1 10^3/ul (0.0-0.1); BASOPHILS % 0.5 % (0.0-2.0); EOSINOPHILS # 0.2 10^3/ul (0.0-0.5); EOSINOPHILS % 1.5 % (0.0-7.0); HEMATOCRIT 27.3 % (37.0-47.0); LYMPHOCYTES # 1.7 10^3/ul (0.8-2.9); LYMPHOCYTES % 14.8 % (15.0-51.0); MEAN CORPUSCULAR HEMOGLOBIN 30.5 pg (29.0-33.0); MEAN CORPUSCULAR VOLUME 92.5 fl (82.0-101.0); MEAN PLATELET VOLUME 9.1 fl (7.4-10.4); MONOCYTE # 0.6 10^3/ul (0.3-0.9); MONOCYTES % 5.4 % (0.0-11.0); NEUTROPHILS % 76.1 % (39.0-77.0); NUCLEATED RED BLOOD CELLS # 0.1 10^3/ul (0.0-0.0); NUCLEATED RED BLOOD CELLS% 0.5 /100WBC (0.0-0.0); PLATELET COUNT 481 10^3/UL (140-415); RED BLOOD COUNT 2.95 10^6/ul (4.20-5.40); RED CELL DISTRIBUTION WIDTH 13.7 % (11.5-14.5); WHITE BLOOD COUNT 11.8 10^3/ul (4.8-10.8)
[2016-10-09 23:56] LABS: INR 0.95; PARTIAL THROMBOPLASTIN TIME 29.3 Sec (25.0-35.0); POTASSIUM 3.8 mmol/L (3.5-5.1); PROTIME 12.7 Sec (12.2-14.2)
[2016-10-09 23:58] LABS: BILIRUBIN,INDIRECT 0.1 mg/dl (0-1.1); BILIRUBIN,TOTAL 0.1 mg/dl (0.2-1.3); CREATININE 0.53 mg/dl (0.44-1.00)
[2016-10-09 23:59] LABS: ALBUMIN/GLOBULIN RATIO 1.18; CALCIUM 9.1 mg/dl (8.4-10.2); URIC ACID 3.7 mg/dl (3.1-7.9)
[2016-10-10] MEDS ORDERED: ONDANSETRON 4 MG INJ IV STA (00:06)
[2016-10-10 00:10] LABS: TROPONIN-I 0.022 ng/ml (0.00-0.12)
[2016-10-10] MEDS ORDERED: morphine 2 MG INJ IV ONE (00:30)
[2016-10-10] MEDS ORDERED: CEFTRIAXONE 1 GM/50 ML (PMX) 50 ML IVPB ONE (01:00)
--- NOTE | 2016-10-10 01:32 | RADRPT ---
PROCEDURE: Noncontrast CT Head. CLINICAL INDICATION: Pain. TECHNIQUE: Noncontrast CT of the head was obtained. The administered radiation dose was CTDI vol = 45 mGy, DLP = 720 mGy-cm. COMPARISON: No pertinent prior examinations were submitted for comparison. FINDINGS: The ventricles and sulci are within normal limits. There is no acute intracranial hemorrhage or ext ra-axial fluid collection. There is no mass effect. No midline shift is identified. There is no loss of cantu-white differentiation to suggest acute infarction. The orbits are within normal limits. The paranasal sinuses and mastoid air cells are without fluid. No destructive osseous lesion is identified. IMPRESSION: No acute findings. RPTAT: HIKT .Renan Steiner MD, MD Date Time Electronically viewed and signed by .Renan Steiner MD, on 10/10/2016 01:32 .T/
[2016-10-10] MEDS ORDERED: ONDANSETRON (ODT) 4 MG TAB ODT STA (02:02)
[2016-10-10 02:10] VITALS: TEMP 98.4
[2016-10-10] MEDS ORDERED: HYDROCODONE/APAP (10/325) TAB PO ONE (02:30)
[2016-10-10] MEDS ORDERED: MAGNESIUM SULFATE 4 GM/100 ML 100 ML IVPB ONE (03:15)
[2016-10-10] MEDS ORDERED: LABETALOL HCL 20MG INJ IV ONE (03:30)
[2016-10-10] MEDS ORDERED: ACETAMINOPHEN 325 MG TAB PO ONE (03:30)
[2016-10-10] MEDS: LACTATED RINGER'S 1,000 ML IV SCH ×2 (03:37→15:02)
[2016-10-10] MEDS: MAGNESIUM SULFATE 20 GM/500 ML 500 ML IV SCH ×3 (03:46→23:47)
[2016-10-10] MEDS ORDERED: CA GLUCONATE (GM) 10% 10ML INJ IV PRN (04:30)
--- NOTE | 2016-10-10 06:46 | HP ---
Date/Time of Note Date/Time of Note DATE: 10/10/16 TIME: 06:42 OB - History Hx of Present Free Text/Dictation patient is s/p c/section POD #4 who presents with severe headache and elevated BPs Chief Complaint: severe headache Care: Good Care Obstetrical Complications: None Past Family/Social History * Past Medical, Surgical, Family and Obstetric Histories reviewed from chart. OB Admission Exam Vital Signs Vital Signs Vital Signs Date Time Temp Pulse Resp B/P Pulse Ox O2 Delivery O2 Flow Rate FiO2 10/10/16 02:10 98.4 88 16 140/80 100 Room Air Physical Exam HEENT: WNL Heart: Rhythm Normal Lungs: Clear Abdomen: WNL Extremities: Normal Reflexes: Normal Last 72 hours Lab Results CBC & BMP 10/09/16 23:23 Liver Function Test 10/09/16 23:23 Alanine Aminotransferase (ALT/SGPT) 81 H Albumin 3.8 Alkaline Phosphatase 137 H Aspartate Amino Transf (AST/SGOT) 98 H Direct Bilirubin 0.00 Total Protein 7.0 OB Assessment/Plan Reason for admission: other Other Assessment: with PIH Other plan: Magnesium sulfate for seizure prophylaxis Labetalol PRN Tylenol PRN Labs and MALLORY COREA Oct 10, 2016 06:46
[2016-10-10] MEDS: ACETAMINOPHEN 325 MG TAB PO PRN ×4 (07:15→22:15)
[2016-10-10 07:38] LABS: ADD SCAN DIFF NO
[2016-10-10 07:43] LABS: BASOPHILS % 0.4 % (0.0-2.0); EOSINOPHILS # 0.1 10^3/ul (0.0-0.5); EOSINOPHILS % 1.4 % (0.0-7.0); HEMATOCRIT 24.3 % (37.0-47.0); HEMOGLOBIN 8.1 g/dl (12.0-16.0); LYMPHOCYTES # 1.9 10^3/ul (0.8-2.9); MEAN CORPUSCULAR HEMOGLOBIN 30.7 pg (29.0-33.0); MEAN CORPUSCULAR HGB CONC 33.3 g/dl (32.0-37.0); MEAN PLATELET VOLUME 9.2 fl (7.4-10.4); MONOCYTE # 0.7 10^3/ul (0.3-0.9); NEUTROPHILS % 70.3 % (39.0-77.0); NUCLEATED RED BLOOD CELLS # 0.1 10^3/ul (0.0-0.0); NUCLEATED RED BLOOD CELLS% 0.5 /100WBC (0.0-0.0); PLATELET COUNT 420 10^3/UL (140-415); RED BLOOD COUNT 2.64 10^6/ul (4.20-5.40); RED CELL DISTRIBUTION WIDTH 13.8 % (11.5-14.5)
[2016-10-10 08:05] LABS: ALBUMIN 3.3 g/dl (3.3-4.9)
[2016-10-10 08:07] LABS: CREATININE 0.5 mg/dl (0.44-1.00)
[2016-10-10 08:08] LABS: ALBUMIN/GLOBULIN RATIO 1.13; CALCIUM 7.9 mg/dl (8.4-10.2); TOTAL PROTEIN 6.2 g/dl (6.1-8.1); URIC ACID 3.8 mg/dl (3.1-7.9)
[2016-10-10 08:13] LABS: INR 0.96; PROTIME 12.8 Sec (12.2-14.2)
[2016-10-10 08:14] LABS: PARTIAL THROMBOPLASTIN TIME 31.5 Sec (25.0-35.0)
--- NOTE | 2016-10-10 10:09 | PN ---
Date/Time of Note Date/Time of Note DATE: 10/10/16 TIME: 10:03 OB Subjective Subjective Subjective This patient had delivery 5 days ago readmitted to the hospital via emergency room due to severe headache and neurological symptoms of preeclampsia, due to elevated blood pressure of 166/98 received IV labetalol and was placed on magnesium sulfate at the present she is still complaining of headache but no blurry vision or epigastric pain, will continue present treatment with all the precautionary measure for seizure. OFE STAUFFER MD Oct 10, 2016 10:08
[2016-10-10] MEDS ORDERED: AL HYDROX/MG HYDROX/SIMETH 30 ML CUP PO PRN (14:30)
[2016-10-11] MEDS: LACTATED RINGER'S 1,000 ML IV SCH (04:03)
[2016-10-11] MEDS: ACETAMINOPHEN 325 MG TAB PO PRN ×2 (04:10→22:22)
[2016-10-11] MEDS: MAGNESIUM SULFATE 20 GM/500 ML 500 ML IV SCH (10:40)
[2016-10-11 12:13] LABS: ALBUMIN 3.3 g/dl (3.3-4.9); POTASSIUM 4.4 mmol/L (3.5-5.1)
[2016-10-11 12:15] LABS: BILIRUBIN,INDIRECT 0.1 mg/dl (0-1.1); BILIRUBIN,TOTAL 0.1 mg/dl (0.2-1.3); CREATININE 0.52 mg/dl (0.44-1.00)
[2016-10-11 12:16] LABS: ALBUMIN/GLOBULIN RATIO 1.37; TOTAL PROTEIN 5.7 g/dl (6.1-8.1)
--- NOTE | 2016-10-11 16:09 | QN ---
Documentation Comment pt doing well vss exam wnl a/p pp preeclampsia lft improving dc mgso4 repeat cbc and cmp in am possible dc home in am WALKER HOLLIDAY MD Oct 11, 2016 16:09
--- NOTE | 2016-10-11 16:11 | PD.PPDC ---
HEADLIGHT ADJUSTER Discharge Instruction Condition Patient Condition: Good Diet Diet: Resume Regular Diet Activity/Restrictions Restrictions: No Exercising No Lifting No Sexual Activity Nothing in the Vagina No [place] No Tampons, douche Follow-up Follow-up with Physician: 3, Day/Days WALKER HOLLIDAY MD Oct 11, 2016 16:10
[2016-10-12] MEDS: ACETAMINOPHEN 325 MG TAB PO PRN ×2 (02:16→14:01)
[2016-10-12 06:50] LABS: ADD SCAN DIFF NO
[2016-10-12 06:51] LABS: BASOPHILS % 0.5 % (0.0-2.0); EOSINOPHILS # 0.3 10^3/ul (0.0-0.5); EOSINOPHILS % 3.8 % (0.0-7.0); HEMATOCRIT 26.5 % (37.0-47.0); HEMOGLOBIN 8.7 g/dl (12.0-16.0); LYMPHOCYTES # 2.1 10^3/ul (0.8-2.9); LYMPHOCYTES % 24.9 % (15.0-51.0); MEAN CORPUSCULAR HEMOGLOBIN 30.6 pg (29.0-33.0); MEAN CORPUSCULAR HGB CONC 32.8 g/dl (32.0-37.0); MEAN CORPUSCULAR VOLUME 93.3 fl (82.0-101.0); MEAN PLATELET VOLUME 8.8 fl (7.4-10.4); MONOCYTE # 0.6 10^3/ul (0.3-0.9); NEUTROPHIL # 5.3 10^3/ul (1.6-7.5); NEUTROPHILS % 62.5 % (39.0-77.0); NUCLEATED RED BLOOD CELLS% 0.5 /100WBC (0.0-0.0); PLATELET COUNT 498 10^3/UL (140-415); RED BLOOD COUNT 2.84 10^6/ul (4.20-5.40); RED CELL DISTRIBUTION WIDTH 13.5 % (11.5-14.5); WHITE BLOOD COUNT 8.5 10^3/ul (4.8-10.8)
[2016-10-12 07:12] LABS: ALBUMIN 3.3 g/dl (3.3-4.9); POTASSIUM 4.1 mmol/L (3.5-5.1)
[2016-10-12 07:14] LABS: BILIRUBIN,INDIRECT 0.1 mg/dl (0-1.1); BILIRUBIN,TOTAL 0.1 mg/dl (0.2-1.3); CREATININE 0.58 mg/dl (0.44-1.00)
[2016-10-12 07:15] LABS: ALBUMIN/GLOBULIN RATIO 1.26; TOTAL PROTEIN 5.9 g/dl (6.1-8.1)
[2016-10-12 07:16] LABS: CALCIUM 8.5 mg/dl (8.4-10.2)
[2016-10-12] MEDS: NIFEdipine (XL) 30 MG TAB PO SCH (11:35)
[2016-10-12 23:15] VITALS: BP 139/80; PULSE 78; RESP 17
--- NOTE | 2016-10-12 23:26 | PN ---
Date/Time of Note Date/Time of Note DATE: 10/12/16 TIME: 23:19 OB Subjective Subjective Subjective Patient seen and examined, she is doing well, denies nausea, vomiting, shortness of breath, chest pain, headache. Lochia is appropriate. She has been ambulating without difficulty and tolerating regular diet. Pain is well controlled on current medications. OB Objective Objective Objective General: AAO X 3, comfortable, NAD, appropriate mood and affect Heart: RRR +S1, +S2, no murmurs Lungs: Clear to auscultation (B/L), no rales, rhonchi or wheezing ABD: Soft, non-tender. UFH: 2 cm below umbilicus Incision: Clear, dry, intact. No erythema, drainage or induration Flank: No CVA tenderness (B/L) LE: Mild edema. No clubbing, cyanosis, thigh or calf tenderness (B/L) OB Assessment/Plan Other plan: 36 y/o with readmission for preeclampsia. Currently she is doing well, has no s/sx of preeclampsia. She is currently on procardia - Afebrile, vital sign stable. - Routine post- care. - Cont procardia - Follow up with Dr. Sweeney tomorrow PEPE MCBRIDE Oct 12, 2016 23:25
[2016-10-13 01:30] VITALS: BP_SYST 145; BP_DIAS 50; BP_DIAS 80; PULSE 83; RESP 17
[2016-10-13 04:25] VITALS: BP 146/93; PULSE 81; RESP 18
[2016-10-13 06:05] VITALS: BP 135/78; RESP 19
[2016-10-13] MEDS ORDERED: NIFEdipine (XL) PO (08:00)
[2016-10-13] MEDS: NIFEdipine (XL) 30 MG TAB PO SCH (08:54)
[2016-10-13] MEDS: ACETAMINOPHEN 325 MG TAB PO PRN (08:59)
--- NOTE | 2016-10-13 11:23 | DS ---
DATE OF ADMISSION: 10/10/2016 DATE OF DISCHARGE: 10/13/2016 ADMISSION DIAGNOSIS: preeclampsia. DISCHARGE DIAGNOSIS: preeclampsia. HOSPITAL COURSE: The patient was admitted to the hospital due to high blood pressures and headache. She was status post repeat delivery about a week ago. She was treated with blood pressur e medications and magnesium sulfate. Headache has resolved, and she feels fine. She denies headach es, visual changes or right upper quadrant pain. She has mild lochia. Blood pressure is controlled by Procardia-XL 30 mg p.o. daily, which I provided a prescription for her to go home with. DISCHARGE DIET: Regular. CONDITION: Satisfactory. FOLLOWUP: Follow up with Dr. Sweeney in 1 week. PRECAUTIONS: Go to the emergency room if headaches, visual changes or right upper quadrant pain. C heck her blood pressures at home. MEDICATIONS: 1. vitamins. 2. Iron. 3. Procardia-XL 30 mg p.o. daily. Dictated By: ROYA FLORES/ELMA Conf#: [id number] DID#: [id number]
== END 2016-10-13 09:15 | disposition home or self-care (01) | DRG 776 ==
LOC: FTE 21:47 → INTOOBSV 10-10 01:49 → UNDOADMOB 10-10 01:49 → OBSVTOIN 10-10 01:49 → OBG 10-10 01:49 → UNDOADMOB 10-10 02:57 → OBG 10-10 02:57
PROVIDERS: ADMIT Specialist; ATTEND Specialist
DX: O89.4 Spinal and epidural anesthesia-induced headache during the puerperium (principal); O86.20 Urinary tract infection following delivery, unspecified; O14.95 Unspecified pre-eclampsia, complicating the puerperium
CPT/HCPCS: 36415; 70450; 80053; 81003; 83615; 83735; 83880; 84484; 84560; 85025; 85610; 85730; 87086; 96374; 96375; J0696; J2270; J2405; J3475; J7120

== ENCOUNTER 2017-05-14 17:34 | Emergency (ER) | payer MEDICAID ==
[~2017-05-14] VITALS: Ht 157.5 cm; Wt 71.0 kg
[~2017-05-14 17:34] MED LIST changes: +NIFEdipine (XL) PO
[2017-05-14 17:37] VITALS: Ht 157.5 cm; Wt 71.0 kg
[2017-05-14] MEDS ORDERED: KETOROLAC 60 MG INJ IM STA (18:46)
[2017-05-14] MEDS ORDERED: ONDANSETRON (ODT) 4 MG TAB ODT STA (18:46)
--- NOTE | 2017-05-14 20:15 | RADRPT ---
PROCEDURE: CT Brain without contrast. CLINICAL INDICATION: Headache. TECHNIQUE: A CT of the brain was performed on a GE [employer] (?)peed 64-slice CT scanner utilizing axial imaging from the skull base through the vertex without IV contrast. Multiplanar reformatted images were made. Images were reviewed on a PACS workstation. One or more the following dose reduction rfan hniques were utilized: Automated exposure control, adjustment of mA/ or kV according to patient's s ize, or use of iterative reconstruction technique. The CTDIvol is 44.2 mGy and the DLP is 720.2 mGy cm. COMPARISON: CT BRAIN 10/10/2016 FINDINGS: There is no intracranial hemorrhage, mass effect, or midline shift. No extra-axial fluid collection is seen. Incidental note is made of a near empty sella. The ventricles and sulci are normal in size and configuration. The density of the brain is normal, and the cantu white matter differentiation ap pears well-preserved. The visualized paranasal sinuses and osseous structures are grossly unremarka ble. IMPRESSION: 1. No evidence of acute intracranial pathology. 2. The brain is normal in appearance. RPTAT: PP .Ana Oilva MD, Date Time Electronically viewed and signed by .Ana Oliva MD, on 05/14/2017 20:15 .H/
[2017-05-14] MEDS ORDERED: ACET/BUTAL/CAFF TAB PO ONE (21:00)
[2017-05-14] MEDS ORDERED: FIORICET PO (21:51)
--- NOTE | 2017-05-14 22:19 | ERD ---
ER Documentation Chief Complaint Date/Time DATE: 05/14/17 TIME: 22:16 Chief Complaint Complains of a headache x 3 days HPI 7-year-old female patient with a past medical history of hypertension presents to the ED complaining of right-sided headache and right eye pain she describes a pressure-like that started 3 days ago. Reports that she feels slightly nauseous. Denies any head or neck injuries. Reports that she took Tylenol. Denies any chest pain, shortness of breath, abdominal pain, nausea, vomiting, diarrhea. ROS All systems reviewed and are negative except as per history of present illness. Medications Home Meds Active Scripts Acetamin/Butalbital/Caffeine* (Fioricet*) [id number] Tab, 1 TAB PO Q6H Y for PAIN, #30 TAB Prov:ROMAN CHENEY PA-C 05/14/17 [NIFEdipine (XL)] 30 MG TABSR No Conflict Check, 30 MG PO DAILY Prov:ROYA MARSHALL MD 10/13/16 Reported Medications Vit-Iron Fumarate-FA ( Vitamin Tablet) 1 Each Tablet, 1 TAB PO DAILY, TAB 10/02/16 Allergies Allergies: Coded Allergies: No Known Allergy (Unverified , 10/02/16) PMhx/Soc History of Surgery: Yes () Anesthesia Reaction: No Hx Neurological Disorder: No Hx Respiratory Disorders: No Hx Cardiac Disorders: Yes (HTN) Hx Psychiatric Problems: No Hx Miscellaneous Medical Probl: No Hx Alcohol Use: No Hx Substance Use: No Hx Tobacco Use: No Physical Exam Vitals Vital Signs Date Time Temp Pulse Resp B/P Pulse Ox O2 Delivery O2 Flow Rate FiO2 05/14/17 17:37 98.1 90 20 119/64 98 Physical Exam Const: [id number], well-nourished. In no acute distress. Head: Atraumatic, normocephalic Eyes: Normal Conjunctiva without injection. No purulent discharge. PERRLA. EOMI ENT: Normal external ear. Ear canal without erythema. Tympanic membrane pearly cantu without effusion or bulging. Nasal canal clear with normal turbinates. Moist oropharynx without tonsillar exudates. Non-erythematous pharynx. Uvula midline. No drooling. No trismus. Neck: No cervical midline tenderness. Full range of motion. No meningismus. No cervical lymphadenopathy. No JVD. Resp: Clear to auscultation bilaterally. No wheezing, rhonchi, rales, or crackles. No accessory muscle use. No retractions. Cardio: Regular rate and rhythm. No murmurs, rubs or gallops. Abd: Soft, non tender, non distended. Normal bowel sounds. No palpable masses. No rebound tenderness. No guarding. Negative McBurney's Point. Negative Watt's Sign. Skin: Normal skin turgor. No petechiae or rashes Back: No midline tenderness. No CVA tenderness. Ext: No cyanosis, or edema. Distal pulses intact bilaterally. Neur: Awake and alert. Normal gait. Normal coordination. Cranial Nerves II- VII intact. Normal finger to nose. Muscle strength 5/5. Sensation intact. Psych: Normal Mood and Affect Results 24 hrs Current Medications Medications (Trade) Dose Ordered Sig/David Route PRN Reason Start Time Stop Time Status Last Admin Dose Admin Ketorolac Tromethamine (Toradol) 60 mg ONCE STAT IM 05/14/17 18:46 05/14/17 18:49 DC 05/14/17 19:05 Ondansetron HCl (Zofran Odt) 4 mg ONCE STAT ODT 05/14/17 18:46 05/14/17 18:49 DC 05/14/17 18:56 Acetaminophen/ Butalbital/ Caffeine (Fioricet) 1 tab ONCE ONCE PO 05/14/17 21:00 05/14/17 21:01 DC 05/14/17 20:57 Procedures/MDM 37-year-old female patient with a past medical history of hypertension presents to the ED complaining of right-sided headache that she describes as achy. Patient is afebrile and nontoxic-appearing. Patient has normal vital signs. Patient was treated here in the ED with Toradol and Zofran which did not relieve her symptoms. Urine was negative. Patient was then treated with Fioricet here in the ED with improvement. CT of the brain that contrast was ordered to further evaluate patient. Negative for any acute abnormalities. PROCEDURE: CT Brain without contrast. CLINICAL INDICATION: Headache. TECHNIQUE: A CT of the brain was performed on a [employer] 64-slice CT scanner utilizing axial imaging from the skull base through the vertex without IV contrast. Multiplanar reformatted images were made. Images were reviewed on a PACS workstation. One or more the following dose reduction techniques were utilized: Automated exposure control, adjustment of mA/ or kV according to patient's size, or use of iterative reconstruction technique. The CTDIvol is 44.2 mGy and the DLP is 720.2 mGycm. COMPARISON: CT BRAIN 10/10/2016 FINDINGS: There is no intracranial hemorrhage, mass effect, or midline shift. No extra- axial fluid collection is seen. Incidental note is made of a near empty sella. The ventricles and sulci are normal in size and configuration. The density of the brain is normal, and the cantu white matter differentiation appears well- preserved. The visualized paranasal sinuses and osseous structures are grossly unremarkable. IMPRESSION: 1. No evidence of acute intracranial pathology. 2. The brain is normal in appearance. Low suspicion for intracranial bleed, subarachnoid hemorrhage, meningitis, TIA, stroke, subdural hematoma, epidural hematoma, or other emergent conditions. Discharge medications: Fioricet Follow up with primary care physician in 1-2 days. Instructed patient to return to the ED sooner for any worsening symptoms. Patient's questions were answered. Patient understood and agreed with discharge plan. Patient discharged stable. Departure Diagnosis: Primary Impression: Headache Headache type: unspecified Headache chronicity pattern: unspecified pattern Intractability: not intractable Qualified Code: R51 - Nonintractable headache, unspecified chronicity pattern, unspecified headache type Additional Impression: Eye pain Laterality: right Qualified Code: H57.11 - Pain of right eye Condition: Stable Patient Instructions: Preventing Migraine Headaches: Triggers, Preventing Migraine Headaches: Medications and Lifestyle Changes, Headache, Unspecified Referrals: [facility] YOU HAVE RECEIVED A MEDICAL SCREENING EXAM AND THE RESULTS INDICATE THAT YOU DO NOT HAVE A CONDITION THAT REQUIRES URGENT TREATMENT IN THE EMERGENCY DEPARTMENT. FURTHER EVALUATION AND TREATMENT OF YOUR CONDITION CAN WAIT UNTIL YOU ARE SEEN IN YOUR DOCTORS OFFICE WITHIN THE NEXT 1-2 DAYS. IT IS YOUR RESPONSIBILITY TO MAKE AN APPOINTMENT FOR FOLOW-UP CARE. IF YOU HAVE A PRIMARY DOCTOR --you should call your primary doctor and schedule an appointment IF YOU DO NOT HAVE A PRIMARY DOCTOR YOU CAN CALL OUR PHYSICIAN REFERRAL HOTLINE AT IF YOU CAN NOT AFFORD TO SEE A PHYSICIAN YOU CAN CHOSE FROM THE FOLLOWING [facility] [address] [facility] [address] [facility] [address] [facility] [address] [facility] [address] [facility] [address] [facility]. [facility] YOU HAVE RECEIVED A MEDICAL SCREENING EXAM AND THE RESULTS INDICATE THAT YOU DO NOT HAVE A CONDITION THAT REQUIRES URGENT TREATMENT IN THE EMERGENCY DEPARTMENT. FURTHER EVALUATION AND TREATMENT OF YOUR CONDITION CAN WAIT UNTIL YOU ARE SEEN IN YOUR DOCTORS OFFICE WITHIN THE NEXT 1-2 DAYS. IT IS YOUR RESPONSIBILITY TO MAKE AN APPOINTMENT FOR FOLOW-UP CARE. IF YOU HAVE A PRIMARY DOCTOR --you should call your primary doctor and schedule and appointment IF YOU DO NOT HAVE A PRIMARY DOCTOR YOU CAN CALL OUR PHYSICIAN REFERRAL HOTLINE AT . IF YOU CAN NOT AFFORD TO SEE A PHYSICIAN YOU CAN CHOSE FROM THE FOLLOWING [facility] INSTITUTIONS: [facility] [address] [place] [address] [facility] [address] [place], [place] [id number] [place] [address] [address] [place] [address] [facility] Hours: Mon - Fri 9:00 AM - 5:00 PM Additional Instructions: Seguimiento con un oftalmologa para la evaluacin y el tratamiento adicionales Llame al doctor MAANA y olga clemencia PURA PARA DENTRO DE 2-3 TOVAR.Dgale a la secretaria que nosotros le instruimos hacer esta pura.Avise o llame si schultz condicin se empeora antes de la pura. Regresa aqui si peor o no mejor. ROMAN CHENEY PA-C May 14, 2017 22:19
== END 2017-05-14 21:59 | disposition home or self-care (01) ==
LOC: FTE 17:34
DX: R51 Headache (principal); H57.11 Ocular pain, right eye; I10 Essential (primary) hypertension
CPT/HCPCS: 70450; 96372; J1885; Z7502; Z7610